=== PATIENT | female | born 1970 | race Two or more races ===

== ENCOUNTER 2021-12-17 23:40 | Emergency (ER) | payer MEDICAID ==
[~2021-12-17] VITALS: Ht 167.6 cm; Wt 113.4 kg
[2021-12-18] MEDS ORDERED: LORazepam 2MG/ML-1ML VIAL IM ONE (00:45)
[2021-12-18] MEDS ORDERED: LORazepam 0.5 MG TAB PO ONE (00:45)
[2021-12-18 00:55] VITALS: BP 133/88
== END 2021-12-18 01:10 | disposition home or self-care (01) ==
LOC: ER 23:40
DX: R55 Syncope and collapse (principal); Z88.6 Allergy status to analgesic agent
CPT/HCPCS: 93005; 96372; 99283; J2060